=== PATIENT | female | born 1960 | race Caucasian/White ===

== ENCOUNTER 2019-04-12 21:26 | Emergency (ER) | payer BC ==
[2019-04-12 21:37] VITALS: BP 124/63
--- NOTE | 2019-04-12 21:52 | ED Physician Documentation ---
PD HPI HEENT - Stated complaint Stated Complaint: TOOTH PX/FEVER - Chief complaint Chief Complaint: Heent - History obtained from History obtained from: Patient - History of Present Illness Timing - onset: How many weeks ago (1) Timing - duration: Hours Timing - details: Gradual onset, Still present Location: Tooth Improves: Other (surgery) Associated symptoms: Fever, Facial swelling Similar symptoms before: Diagnosis (bad tooth) Recently seen: Clinic, Surgery - Additional information Additional information: 58-year-old female has developed pain in the left lower molar over the past week and she was seen in urgent care and placed on some Augmentin she followed up with her dentist the next day and a crack was in the tooth and the recently placed crown was removed the tooth was removed this afternoon at 230. The patient remains on her Augmentin she has taken a total of 4 doses and this evening she developed a fever up to 103. She contacted her dentist who asked her to come to the emergency department for evaluation. She is taken some ibuprofen and some Tylenol she is now symptom-free she does not have much in the way of pain or fever here in the emergency department. She states that she is not feeling ill at this time. Review of Systems Constitutional: reports: Fever, Myalgias, Fatigue Eyes: denies: Decreased vision Ears: reports: Ear pain (resolved) Throat: reports: Dental pain / toothache (improved) Cardiac: denies: Chest pain / pressure, Palpitations Respiratory: denies: Dyspnea, Cough GI: denies: Abdominal Pain, Nausea, Vomiting : denies: Dysuria, Frequency Skin: denies: Rash Musculoskeletal: denies: Neck pain, Back pain Neurologic: denies: Generalized weakness, Focal weakness, Numbness PD PAST MEDICAL HISTORY - Present Medications Home Medications: Ambulatory Orders Medication Instructions Recorded Confirmed Amox/Clav 875/125 [Augmentin] 1 each PO Q12H 04/12/19 04/12/19 - Allergies Allergies/Adverse Reactions: Allergies Allergy/AdvReac Type Severity Reaction Status Date / Time No Known Drug Allergies Allergy Verified 04/12/19 21:36 PD ED PE NORMAL - Vitals Vital signs reviewed: Yes (tachy ) - General General: Alert and oriented X 3, No acute distress, Well developed/nourished - HEENT HEENT: Atraumatic, PERRL, EOMI, Ears normal, Moist mucous membranes, Pharynx benign, Other (There is a missing left lower molar with a fresh surgical site without drainage or tenderness. There is no fluctuance or fullness or tenderness to the buccal fold or the ligular fold. ) - Neck Neck: Supple, no meningeal sign, No bony TTP - Cardiac Cardiac: RRR, No murmur - Respiratory Respiratory: No respiratory distress, Clear bilaterally - Abdomen Abdomen: Soft, Non tender - Derm Derm: Normal color, Warm and dry, No rash - Extremities Extremities: No deformity, No edema, No calf tenderness / cord - Neuro Neuro: Alert and oriented X 3, slip filler 2-12 intact, No motor deficit, No sensory deficit, Normal speech Eye Opening: Spontaneous Motor: Obeys Commands Verbal: Oriented GCS Score: 15 - Psych Psych: Normal mood, Normal affect Results - Vitals Vitals: Vital Signs - 24 hr 04/12/19 04/12/19 21:33 23:02 Temperature 37.3 C Heart Rate 113 H 107 H Respiratory 18 Rate Blood Pressure 124/63 O2 Saturation 95 100 Oxygen O2 Source Room air - Labs Labs: Laboratory Tests 04/12/19 04/12/19 22:09 22:09 WBC 4.9 RBC 4.33 Hgb 12.9 Hct 38.9 MCV 89.8 MCH 29.8 MCHC 33.2 RDW 12.1 Plt Count 197 MPV 8.9 Neut # (Auto) 3.9 Lymph # (Auto) 0.7 L [place] # (Auto) 0.2 Eos # (Auto) 0.0 Baso # (Auto) 0.0 Absolute Nucleated RBC 0.00 Nucleated RBC % 0.0 Sodium 135 Potassium 3.5 Chloride 103 Carbon Dioxide 22 Anion Gap 10.0 BUN 14 Creatinine 0.8 Estimated GFR (MDRD) 73 L Glucose 125 H Calcium 9.4 Total Bilirubin 1.7 H AST 62 H ALT 64 H Alkaline Phosphatase 86 Total Protein 7.6 Albumin 4.3 Globulin 3.3 Albumin/Globulin Ratio 1.3 Lipase 40 PD MEDICAL DECISION MAKING - ED course Complexity details: reviewed results, re-evaluated patient, considered d ifferential, d/w patient ED course: 58-year-old female with a dental abscess and a tooth extraction earlier today has spiked a fever to over 103.5. She was asked by her dentist coming to the emergency department for evaluation. At the time she arrives here her symptoms are much improved she is no longer febrile and we have drawn blood cultures and obtained blood counts. 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 I did discuss this with the patient and recommended she have her blood tested within the next month. Departure - Departure Disposition: 01 Home, Self Care Clinical Impression: History of dental abscess Condition: Stable Instructions: ED Abscess Dental Follow-Up: Sina Springer ARNP [Primary Care Provider] - Discharge Date/Time: 04/12/19 23:01
[2019-04-12 22:19] LABS: BASOPHILS % (AUTO) 0.2 %; HGB - HEMOGLOBIN 12.9 g/dL (12.0-16.0); LYMPHOCYTES # (AUTO) 0.7 10^3/uL (1.5-3.5); LYMPHOCYTES % (AUTO) 15.1 %; MEAN CORPUSCULAR HEMOGLOBIN 29.8 pg (27.0-31.0); MEAN CORPUSCULAR HGB CONC 33.2 g/dL (32.0-36.0); MEAN CORPUSCULAR VOLUME 89.8 fL (81.0-99.0); MEAN PLATELET VOLUME 8.9 fL (7.9-10.8); MONOCYTES # (AUTO) 0.2 10^3/uL (0.0-1.0); MONOCYTES % (AUTO) 4.3 %; NEUTROPHILS # (AUTO) 3.9 10^3/uL (1.5-6.6); NEUTROPHILS % (AUTO) 80.2 %; PLT - PLATELET COUNT 197 10^3/uL (130-450); RED BLOOD COUNT 4.33 10^6/uL (4.20-5.40); RED CELL DISTRIBUTION WIDTH 12.1 % (12.0-15.0); WHITE BLOOD COUNT 4.9 x10^3/uL (4.8-10.8)
[2019-04-12 22:33] LABS: ALBUMIN 4.3 g/dL (3.2-5.5); ALBUMIN/GLOBULIN RATIO 1.3 (1.0-2.2); BILIRUBIN,TOTAL 1.7 mg/dL (0.2-1.0); CALCIUM 9.4 mg/dL (8.5-10.3); CREATININE 0.8 mg/dL (0.4-1.0); TOTAL PROTEIN 7.6 g/dL (6.7-8.2)
== END 2019-04-12 23:01 | disposition home or self-care (01) ==
LOC: ED 21:26
DX: Z03.89 Encounter for observation for other suspected diseases and conditions ruled out (principal); Z87.19 Personal history of other diseases of the digestive system
CPT/HCPCS: 36415; 80053; 83690; 85025; 87040; 99282; 99283

== ENCOUNTER 2019-04-23 08:14 | Outpatient (CLI) | payer BC ==
[2019-04-23 09:51] LABS: BASOPHILS % (AUTO) 0.5 %; EOSINOPHILS # (AUTO) 0.3 10^3/uL (0.0-0.7); EOSINOPHILS % (AUTO) 3.9 %; HGB - HEMOGLOBIN 12.9 g/dL (12.0-16.0); LYMPHOCYTES # (AUTO) 2.9 10^3/uL (1.5-3.5); LYMPHOCYTES % (AUTO) 39.3 %; MEAN CORPUSCULAR HEMOGLOBIN 29.3 pg (27.0-31.0); MEAN CORPUSCULAR HGB CONC 32.8 g/dL (32.0-36.0); MEAN CORPUSCULAR VOLUME 89.3 fL (81.0-99.0); MEAN PLATELET VOLUME 8.5 fL (7.9-10.8); MONOCYTES # (AUTO) 0.5 10^3/uL (0.0-1.0); NEUTROPHILS # (AUTO) 3.7 10^3/uL (1.5-6.6); NEUTROPHILS % (AUTO) 49.6 %; PLT - PLATELET COUNT 456 10^3/uL (130-450); WHITE BLOOD COUNT 7.5 x10^3/uL (4.8-10.8)
[2019-04-23 10:16] LABS: ALBUMIN 4.6 g/dL (3.2-5.5); ALBUMIN/GLOBULIN RATIO 1.3 (1.0-2.2); ALKALINE PHOSPHATASE 124 IU/L (42-121); ALT ALANINE AMINOTRANSFERASE 80 IU/L (10-60); AST ASPARTATE AMINOTRANSFERASE 37 IU/L (10-42); BILIRUBIN,TOTAL 1.1 mg/dL (0.2-1.0); BUN - BLOOD UREA NITROGEN 23 mg/dL (6-20); CALCIUM 9.6 mg/dL (8.5-10.3); CARBON DIOXIDE - CO2 25 mmol/L (21-32); CHLORIDE 102 mmol/L (101-111); CHOL/HDL RATIO 4.2 (<4.4); CHOLESTEROL 227 mg/dL; CREATININE 0.8 mg/dL (0.4-1.0); GFR - MDRD 73 (>89); GLUCOSE 102 mg/dL (70-100); HDL CHOLESTEROL 54 mg/dL; LDL CHOLESTEROL,CALCULATED 147 mg/dL; LDL/HDL RATIO 2.7 (<4.4); SODIUM 138 mmol/L (135-145); TOTAL PROTEIN 8.2 g/dL (6.7-8.2); VLDL CHOLESTEROL 26 mg/dL
[2019-04-23 10:23] LABS: T4 (THYROXINE) 8.23 ug/dL (6.09-12.23)
[2019-04-23 10:26] LABS: THYROID STIMULATING HORMONE 0.13 uIU/mL (0.34-5.60)
[2019-04-23 10:28] LABS: FREE T4 (FREE THYROXINE) 0.91 ng/dL (0.58-1.64)
== END 2019-04-23 08:15 | disposition home or self-care (01) ==
LOC: LAB 08:14
PROVIDERS: ATTEND Nurse Practitioner Family
DX: Z00.00 Encounter for general adult medical examination without abnormal findings (principal); E55.9 Vitamin D deficiency, unspecified; E78.5 Hyperlipidemia, unspecified; E03.2 Hypothyroidism due to medicaments and other exogenous substances
CPT/HCPCS: 36415; 80053; 80061; 82306; 82728; 83721; 84436; 84439; 84443; 84481; 85025

== ENCOUNTER 2019-05-19 13:08 | Outpatient (CLI) | payer BC ==
--- NOTE | 2019-05-26 12:05 | Mammography Report ---
Reason: ROUTINE MAMMO Procedure Date: 05/19/2019 Accession Number: [id number] / [id number] Procedure: LEDA - Screening Mammo w/Kike CPT Code: Final Report FULL RESULT: EXAM: Screening Mammo w/Kike DATE: 05/19/2019 1:31 PM CLINICAL HISTORY: Screening encounter history of early menses. Family history of breast cancer in the mother at the age of 56 and 81 as well as a sister at the age of 40. TECHNIQUE: (B) - Bilateral CC and MLO views were obtained. COMPARISON: None PARENCHYMAL PATTERN: (A) - The breast(s) demonstrate(s) scattered fibroglandular densities. FINDINGS: There are no suspicious masses, calcifications, or areas of distortion. IMPRESSION: Negative examination. BI-RADS category 1. RECOMMENDATION: (ANNUAL) - Recommend routine annual screening mammography. BI-RADS CATEGORY: (1) - Negative. STANDARD QUALIFYING STATEMENTS: 1. This examination was not reviewed with the aid of Computer-Aided Detection (CAD). 2. A negative or benign imaging report should not preclude biopsy if clinically suspicious findings are present. 3. Dense breasts may obscure an underlying neoplasm. 4. This examination was reviewed with the aid of 3D breast imaging (tomosynthesis).
== END 2019-05-19 13:09 | disposition home or self-care (01) ==
LOC: DI 13:08
PROVIDERS: ATTEND Nurse Practitioner Family
DX: Z12.31 Encounter for screening mammogram for malignant neoplasm of breast (principal); Z80.3 Family history of malignant neoplasm of breast
CPT/HCPCS: 77063; 77067

== ENCOUNTER 2019-07-06 11:34 | Outpatient (CLI) | payer BC ==
[2019-07-06 12:52] LABS: ALBUMIN 4.2 g/dL (3.2-5.5); ALBUMIN/GLOBULIN RATIO 1.2 (1.0-2.2); BILIRUBIN,TOTAL 0.8 mg/dL (0.2-1.0); CALCIUM 9.6 mg/dL (8.5-10.3); CREATININE 0.7 mg/dL (0.4-1.0); TOTAL PROTEIN 7.8 g/dL (6.7-8.2)
[2019-07-06 13:06] LABS: T4 (THYROXINE) 12.96 ug/dL (6.09-12.23)
[2019-07-06 13:09] LABS: THYROID STIMULATING HORMONE < 0.08 uIU/mL (0.34-5.60)
[2019-07-06 13:11] LABS: FREE T3 5.96 pg/mL (2.5-3.9)
--- NOTE | 2019-07-07 02:05 | Ultrasound Report ---
Reason: HISTORY OF CYSTS Procedure Date: 07/06/2019 Accession Number: [id number] / [id number] Procedure: US - Head or Neck Soft Tissue CPT Code: Final Report FULL RESULT: EXAM: THYROID ULTRASOUND EXAM DATE: 07/06/2019 12:31 PM. CLINICAL HISTORY: HISTORY OF CYSTS. COMPARISON: None. TECHNIQUE: Real time sonographic imaging of the thyroid was performed by the healthcare customer service. Multiple office services representative static images were saved for review. FINDINGS: THYROID GLAND: Right Lobe: 5.5 x 1.7 x 2.0 cm, volume 9.7 cc. Heterogeneous background echotexture. Right Lobe Nodules: 1. Superior lobe solid nodule measures 1.0 x 0.7 x 1.0 cm and is isoechoic with the thyroid gland. Minimal internal vascularity is seen. There are no microcalcifications or cystic portions. 2. Heterogeneous solid nodule in the posterior aspect of the mid thyroid lobe measures 1.0 x 0.7 x 1.1 cm. No internal vascularity or microcalcifications are seen. 3. Large solid nodule in the lower pole is heterogeneous in appearance but predominantly hypoechoic. It measures 2.0 x 1.2 x 1.5 cm. There is internal vascularity. Small internal cystic portions are seen 1 of which demonstrates a punctate internal echogenic focus. Left Lobe: 4.7 x 1.9 x 1.7 cm, volume 7.9 cc. Normal background echotexture. Left Lobe Nodules: 1. Solid nodule in the upper pole measures 1.8 x 0.9 x 1.0 cm and demonstrates minimal internal vascularity. It is predominantly hypoechoic in echogenicity with no internal cystic portions or microcalcifications are seen. 2. Solid heterogeneously appearing nodule in the lower pole measures 1.3 x 2.4 x 1.2 cm and contains small internal cystic areas. No internal vascularity or microcalcifications are seen. Isthmus: 0.4 cm AP. Normal background echotexture. Isthmic Nodules: A single solid hypoechoic nodule measures 0.6 x 0.4 x 0.5 cm. No internal vascularity is seen. LYMPH NODES: No adenopathy demonstrated in the central or lateral compartment. OTHER: None. IMPRESSION: Multiple bilateral solid nodules with multiple suspicious imaging features, particularly in the large right lower pole nodule and both nodules in the left lobe. FNA is recommended. Management recommendations are based on 2017 thyroid imaging reporting and data system (TI-RADS). [employer]
== END 2019-07-06 11:35 | disposition home or self-care (01) ==
LOC: DI 11:34
PROVIDERS: ATTEND Nurse Practitioner Family
DX: E04.2 Nontoxic multinodular goiter (principal); E03.2 Hypothyroidism due to medicaments and other exogenous substances; Z79.899 Other long term (current) drug therapy
CPT/HCPCS: 36415; 76536; 80053; 84436; 84439; 84443; 84481; 86376; 86800

== ENCOUNTER 2019-09-23 13:11 | Outpatient (CLI) | payer OTHER, BC | END 2019-09-23 13:12 | disposition home or self-care (01) | LOC: CAM 13:11 | PROVIDERS: ATTEND Nurse Practitioner Family | DX: R20.2 Paresthesia of skin (principal) | CPT/HCPCS: 97810; 97811 ==

== ENCOUNTER 2019-09-30 13:20 | Outpatient (CLI) | payer OTHER, BC | END 2019-09-30 13:21 | disposition home or self-care (01) | LOC: CAM 13:20 | PROVIDERS: ATTEND Nurse Practitioner Family | DX: R20.2 Paresthesia of skin (principal) | CPT/HCPCS: 97810; 97811 ==

== ENCOUNTER 2019-10-07 13:23 | Outpatient (CLI) | payer OTHER, BC | END 2019-10-07 13:24 | disposition home or self-care (01) | LOC: CAM 13:23 | PROVIDERS: ATTEND Nurse Practitioner Family | DX: R20.2 Paresthesia of skin (principal) | CPT/HCPCS: 97810; 97811 ==

== ENCOUNTER 2019-10-21 18:09 | Outpatient (CLI) | payer BC ==
--- NOTE | 2019-10-22 11:41 | Ultrasound Report ---
PROCEDURE: Head or Neck Soft Tissue INDICATIONS: MULTIPLE THYROID NODULES TECHNIQUE: Real-time scanning was performed of the thyroid gland, with image documentation. COMPARISON: 07/06/2019 FINDINGS: Right: Thyroid lobe measures 3.9 x 1.8 x 1.4 cm, and is heterogeneous in echotexture. Left: Thyroid lobe measures 4.2 x 1.8 x 1.3 cm, and is heterogeneous in echotexture. Isthmus: 3 mm thick. Nodule number: One Location: Right lateral Size: 1.1 x 0.8 x 1.0 cm. Slightly decreased size. Composition: Solid Echogenicity: Isoechoic Shape: Wider than tall. Margins: Indistinct Echogenic foci: None Total points: 3 ACR TI-RADS category: Mildly suspicious Nodule number: Two Location: Right dorsal mid to lower pole Size: 1.1 x 0.9 x 0.9 cm. Fairly stable Composition: Predominantly solid Echogenicity: Hypoechoic Shape: wider than tall. Margins: Smooth Echogenic foci: None Total points: 4 ACR TI-RADS category: Moderately suspicious Nodule number: Three Location: Left lower pole Size: 0.7 x 0.7 x 0.7 cm. Decreased size Composition: Solid Echogenicity: Hypoechoic Shape: wider than tall. Margins: Irregular Echogenic foci: Macrocalcification Total points: 7 ACR TI-RADS category: Highly suspicious Nodule number: Four Location: Isthmus Size: 0.5 x 0.2 x 0.3 cm. Composition: Solid Echogenicity: Isoechoic Shape: wider than tall. Margins: Smooth Echogenic foci: None Total points: 3 ACR TI-RADS category: Mildly suspicious IMPRESSION: 1. Decreased size of a few of the thyroid nodule seen previously. 2. Continued follow-up is recommended, particularly given morphology of the left lower pole subcentim eter nodule, although this has decreased in size. ACR TI-RADS definitions and recommendations: TI-RADS 1 (benign): 0 points. FNA not needed. TI-RADS 2 (not suspicious): 2 points. FNA not needed. TI-RADS 3 (mildly suspicious): 3 points. ? FNA if 2.5 cm or larger, follow up if 1.5 cm or larger (at 1, 3, and 5 years). TI-RADS 4 (moderately suspicious): 4-6 points. ? FNA if 1.5 cm or larger, follow up if 1 cm or larger (at 1, 2, 3, and 5 years). TI-RADS 5 (highly suspicious): 7 points or more. ? FNA if 1 cm or larger, follow up if 0.5 cm or larger (every year for 5 years). Reviewed by: Haley Little MD on 10/22/2019 11:40 AM PDT Approved by: Haley Little MD on 10/22/2019 11:40 AM PDT Station ID: [id number]
== END 2019-10-21 18:10 | disposition home or self-care (01) ==
LOC: DI 18:09
PROVIDERS: ATTEND Internal Medicine Endocrinology, Diabetes & Metabolism
DX: E04.2 Nontoxic multinodular goiter (principal)
CPT/HCPCS: 76536

== ENCOUNTER 2019-11-25 13:17 | Outpatient (CLI) | payer BC | END 2019-11-25 13:18 | disposition home or self-care (01) | LOC: CAM 13:17 | PROVIDERS: ATTEND Nurse Practitioner Family | DX: R20.2 Paresthesia of skin (principal) | CPT/HCPCS: 97810; 97811 ==

== ENCOUNTER 2019-12-02 14:49 | Outpatient (CLI) | payer BC | END 2019-12-02 14:50 | disposition home or self-care (01) | LOC: CAM 14:49 | PROVIDERS: ATTEND Nurse Practitioner Family | DX: R20.2 Paresthesia of skin (principal) | CPT/HCPCS: 97810; 97811 ==

== ENCOUNTER 2019-12-30 13:17 | Outpatient (CLI) | payer BC | END 2019-12-30 13:18 | disposition home or self-care (01) | LOC: CAM 13:17 | PROVIDERS: ATTEND Nurse Practitioner Family | DX: R20.2 Paresthesia of skin (principal) | CPT/HCPCS: 97810; 97811 ==

== ENCOUNTER 2020-01-20 13:41 | Outpatient (CLI) | payer BC | END 2020-01-20 13:42 | disposition home or self-care (01) | LOC: CAM 13:41 | PROVIDERS: ATTEND Nurse Practitioner Family | DX: R20.2 Paresthesia of skin (principal) | CPT/HCPCS: 97810; 97811 ==

== ENCOUNTER 2020-01-27 13:15 | Outpatient (CLI) | payer BC | END 2020-01-27 13:16 | disposition home or self-care (01) | LOC: CAM 13:15 | PROVIDERS: ATTEND Nurse Practitioner Family | DX: R20.2 Paresthesia of skin (principal) ==

== ENCOUNTER → 2020-01-27 | Outpatient (CLI) | payer BC | LOC: CAM 13:15 | PROVIDERS: ATTEND Nurse Practitioner Family | DX: R20.2 Paresthesia of skin (principal) ==

== ENCOUNTER 2020-02-10 13:19 | Outpatient (CLI) | payer BC | END 2020-02-10 13:20 | disposition home or self-care (01) | LOC: CAM 13:19 | PROVIDERS: ATTEND Nurse Practitioner Family | DX: R20.2 Paresthesia of skin (principal) | CPT/HCPCS: 97810; 97811 ==

== ENCOUNTER 2020-02-24 13:17 | Outpatient (CLI) | payer BC | END 2020-02-24 13:18 | disposition home or self-care (01) | LOC: CAM 13:17 | PROVIDERS: ATTEND Nurse Practitioner Family | DX: Z53.9 Procedure and treatment not carried out, unspecified reason (principal) ==

== ENCOUNTER 2020-02-24 13:51 | Outpatient (CLI) | payer BC | END 2020-02-24 13:52 | disposition home or self-care (01) | LOC: CAM 13:51 | PROVIDERS: ATTEND Nurse Practitioner Family | DX: R20.0 Anesthesia of skin (principal); R20.2 Paresthesia of skin | CPT/HCPCS: 97810; 97811 ==

== ENCOUNTER 2020-02-28 08:30 | Outpatient (CLI) | payer BC ==
[2020-02-28 08:58] LABS: BASOPHILS % (AUTO) 0.3 %; EOSINOPHILS # (AUTO) 0.3 10^3/uL (0.0-0.7); HGB - HEMOGLOBIN 13.5 g/dL (12.0-16.0); LYMPHOCYTES % (AUTO) 30.2 %; MEAN CORPUSCULAR HEMOGLOBIN 29.3 pg (27.0-31.0); MEAN CORPUSCULAR HGB CONC 32.6 g/dL (32.0-36.0); MEAN CORPUSCULAR VOLUME 89.8 fL (81.0-99.0); MEAN PLATELET VOLUME 8.8 fL (7.9-10.8); MONOCYTES # (AUTO) 0.3 10^3/uL (0.0-1.0); MONOCYTES % (AUTO) 4.6 %; NEUTROPHILS % (AUTO) 60.7 %; PLT - PLATELET COUNT 301 10^3/uL (130-450); RED BLOOD COUNT 4.61 10^6/uL (4.20-5.40); RED CELL DISTRIBUTION WIDTH 12.5 % (12.0-15.0); WHITE BLOOD COUNT 6.6 x10^3/uL (4.8-10.8)
[2020-02-28 09:22] LABS: ALBUMIN 4.3 g/dL (3.2-5.5); ALBUMIN/GLOBULIN RATIO 1.2 (1.0-2.2); BILIRUBIN,TOTAL 1.2 mg/dL (0.2-1.0); CALCIUM 9.5 mg/dL (8.5-10.3); CREATININE 0.8 mg/dL (0.4-1.0)
[2020-02-28 09:36] LABS: THYROID STIMULATING HORMONE 1.81 uIU/mL (0.34-5.60)
[2020-02-28 09:38] LABS: FREE T3 3.6 pg/mL (2.5-3.9)
[2020-02-28 13:22] LABS: HEMOGLOBIN A1c% 5.5 % (4.27-6.07)
[2020-02-29 10:32] LABS: PROGESTERONE 0.7 ng/mL
== END 2020-02-28 08:31 | disposition home or self-care (01) ==
LOC: LAB 08:30
PROVIDERS: ATTEND Nurse Practitioner Family
DX: E78.5 Hyperlipidemia, unspecified (principal); E55.9 Vitamin D deficiency, unspecified; E03.9 Hypothyroidism, unspecified; R73.9 Hyperglycemia, unspecified; R20.2 Paresthesia of skin
CPT/HCPCS: 36415; 80053; 82306; 82626; 82670; 83036; 84144; 84443; 84481; 85025